=== PATIENT | female | born 1965 | race Caucasian/White ===

== ENCOUNTER 2022-08-19 12:16 | Emergency (ER) | payer OTHER, SELFPAY ==
[2022-08-19 13:01] VITALS: BP 135/96; PULSE 100; RESP 18; TEMP 36.3; O2SAT 100
--- NOTE | 2022-08-19 13:52 | ED.LOWEXIN ---
HPI - Extremity Injury (Lower) General Chief Complaint: Extremity Injury, Lower Stated Complaint: rt hip pain Time Seen by Provider: 08/19/22 13:52 Source: patient Mode of arrival: ambulatory Limitations: no limitations History of Present Illness HPI Narrative: 57 y/o female presented for c/o right anterior hip pain for over 3 weeks. Pain radiates to right leg mid thigh. Denies injury or overuse. Ambulates with steady gait. Denies numbness, tingling or weakness to RLE. Took 'pain pills' without relief. Had video call with PCP one week ago, but did not potato picker the prescribed prescription. States it is not getting better. Sitting with legs crossed. Related Data Home Medications Medication Instructions Recorded Confirmed dextroamphetamine-amphetamine 5 mg 5 mg PO DAILY 08/19/22 08/19/22 tablet (Adderall) Allergies Allergy/AdvReac Type Severity Reaction Status Date / Time No Known Allergies Allergy Verified 08/19/22 13:42 Review of Systems Review of Systems: CONSTITUTIONAL: Denies body aches, fever, chills CARDIOVASCULAR: Denies chest pain, palpitations, or edema. RESPIRATORY: Denies cough or dyspnea. GASTROINTESTINAL: Denies abdominal pain, nausea, vomiting, or diarrhea. SKIN: Denies rash, itching, or wounds. MUSCULOSKELETAL:Per HPI NEUROLOGIC: Denies headache, numbness, tingling, or weakness. All systems reviewed & are unremarkable except as noted in HPI and below PMFSH Comments At time of signature, I have reviewed and agree with nursing past medical, surgical, social and family history unless otherwise noted. Please see nursing chart for further information. There is no relevant family history pertinent to the presenting complaint Exam Narrative: GENERAL: Well-appearing, well-nourished, and in no acute distress. CHEST: Speaks in full sentences. No respiratory distress. HEART: Regular rate and rhythm. Normal and equal peripheral pulses. EXTREMITIES: RLE has normal strength and sensation, Tender over right hip flexor. Normal range of motion with flexion/extension/rotation at hip but endorses pain to hip flexor with movement. No edema or ecchymosis. No open wounds/lesions or obvious deformity; alignment normal, pulse palpable and equal bilaterally, skin warm, dry, pink. Capillary refill less than 3 seconds. SKIN: Warm, dry, no rash. NEURO: Alert and oriented x3. PSYCH: Normal mood and affect Course Course Emergency Course: Patient is aware of diagnosis, understands and agrees to treatment plan. Anticipatory guidance given. Patient agrees to follow-up as directed and is aware of reasons to seek care at the emergency department. Portions of this record may have been created with voice recognition software Level of Care: Express Care Visit Vital Signs Vital signs: Vital Signs Temperature 97.4 F L 08/19/22 13:01 Pulse Rate 100 08/19/22 13:01 Respiratory Rate 18 08/19/22 13:01 Blood Pressure 135/96 H 08/19/22 13:01 Pulse Oximetry 100 08/19/22 13:01 Oxygen Delivery Room Air 08/19/22 13:01 Temperature 97.4 F L 08/19/22 13:01 Pulse Rate 100 08/19/22 13:01 Respiratory Rate 18 08/19/22 13:01 Blood Pressure 135/96 H 08/19/22 13:01 Pulse Oximetry 100 08/19/22 13:01 Oxygen Delivery Room Air 08/19/22 13:01 Reviewed MDM - Extremity Injury (Lower) MDM Narrative Medical decision making narrative: Advised supportive measures and signs/symptoms to go to the ER. Pt is appropriate for outpt treatment and f/u. we discussed the possibility of imaging and physical therapy per PCP. Differential Diagnosis Differential diagnosis: Likely other (osteoarthritis, hip strain, bursitis) Discharge Plan Discharge Clinical Impression: Acute pain of right hip Patient Disposition: Home, Self-Care Condition: Stable Instructions: Hip Pain (ED) Additional Instructions: Rest. Avoid running or excessive walking or anything that worsens the symptoms Tylenol 1000mg every 8
== END 2022-08-19 14:00 | disposition home or self-care (01) ==
PROVIDERS: Emergency Provider Nurse Practitioner Family
DX: M25.551 Pain in right hip (principal); F90.9 Attention-deficit hyperactivity disorder, unspecified type
CPT/HCPCS: 99213; G0463

== ENCOUNTER 2023-03-11 09:09 | Emergency (ER) | payer OTHER, SELFPAY ==
[2023-03-11 09:35] VITALS: BP 130/92; PULSE 96; RESP 16; TEMP 36.6; O2SAT 100
--- NOTE | 2023-03-11 09:53 | ED.HA ---
HPI - Headache General Chief Complaint: Headache Stated Complaint: dizziness,blurred vision Time Seen by Provider: 03/11/23 09:53 Source: patient and RN notes reviewed Mode of arrival: ambulatory Limitations: no limitations History of Present Illness HPI Narrative: 57-year-old female with a history of hypertension presented for complaint of intermittent dizziness, vision changes an elevated blood pressure for about 1 week. Endorses yesterday she had intermittent brief episodes of left-sided chest pain, these episodes were associated with profuse sweating and nausea, pain radiated to the back. Endorses fatigue today. She also states she almost passed out while at work about 4 days ago. She states her vision changed and went dark, she held on to the counter and did not collapse. Denies room spinning. Patient endorses a chronic cough and chronic palpitations, worse when going up stairs. Denies cough, wheezing, vomiting, diarrhea, fever or chills. Patient is smoker half pack per day over 40 years, occasional alcohol, denies drug use. States she has not taken medication for hypertension in over 1 year after her , she just stopped taking the medication. Related Data Home Medications Medication Instructions Recorded Confirmed dextroamphetamine-amphetamine 5 mg 5 mg PO DAILY 08/19/22 08/19/22 tablet (Adderall) Allergies Allergy/AdvReac Type Severity Reaction Status Date / Time No Known Allergies Allergy Verified 08/19/22 13:42 Review of Systems Review of Systems: CONSTITUTIONAL: Denies body aches, fever, chills, or sweats. EYES: Reports visual changes, denies redness, or discharge. ENT: Denies rhinorrhea, congestion, sore throat, or otalgia. CARDIOVASCULAR: Reports chest pain, palpitations, Denies edema. RESPIRATORY: Reports chronic cough denies dyspnea. GASTROINTESTINAL: Reports nausea Denies abdominal pain, vomiting, or diarrhea. GENITOURINARY: Denies dysuria or hematuria. SKIN: Denies rash, itching, or wounds. MUSCULOSKELETAL: Denies back pain, joint pain, or myalgia. NEUROLOGIC: Endorses dizziness denies headache, numbness, tingling, or weakness All systems reviewed & are unremarkable except as noted in HPI and below PMFSH Past Medical History Medical History (Updated 03/11/23 @ 11:06 by Violeta Jacome APRN) HLD (hyperlipidemia) HTN (hypertension) Family History Family History (Updated 03/11/23 @ 11:06 by Violeta Jacome APRN) Other Diabetes mellitus Heart disease Social History Social History (Updated 03/11/23 @ 11:07 by Violeta Jacome APRN) Smoking packs per day: 0.5 Smoking cigarettes per day: 10.0 Years smoked: 40 Smoking pack-years: 20.00 Smoking status: Current every day smoker Tobacco type: cigarettes Alcohol use details: Occasional Comments At time of signature, I have reviewed and agree with nursing past medical, surgical, social and family history unless otherwise noted. Please see nursing chart for further information. There is no relevant family history pertinent to the presenting complaint Exam Narrative: GENERAL: Well-appearing EYES: PERRLA, EOMI. ENT: Mucous membranes pink and moist. No rhinorrhea. NECK: Normal AROM. Supple. No lymphadenopathy. CHEST: No respiratory distress. Clear to auscultation. HEART: Regular rate and rhythm. No murmur appreciated. Normal peripheral pulses. ABDOMEN: Soft, nontender, nondistended, normal active bowel sounds. EXTREMITIES: Normal range of motion. No edema. SKIN: Warm, dry, no rash. Capillary refill normal. Normal skin turgor. NEURO:No focal deficits. Alert and oriented x3. No facial droop/asymmetry noted bilaterally. Ambulatory exam with a normal based, steady gait. PSYCH: Normal affect. Course Course Emergency Course: Patient is aware of diagnosis, understands and agrees to treatment plan. Anticipatory guidance given. Portions of this record may have been created with anthony
--- NOTE | 2023-03-11 10:10 | ECG_ITS ---
Measurements Intervals [place] Rate: 82 P: 68 [place]: 146 QRS: 34 QRSD: 93 T: 70 QT: 386 QTc: 453 Interpretive Statements SINUS RHYTHM WITH SINUS ARRHYTHMIA INCOMPLETE RIGHT BUNDLE BRANCH BLOCK [90+ ms QRS DURATION, TERMINAL R IN V1/V2, 40+ ms S IN I/aVL/V4/V5/V6] NO PREVIOUS ECG AVAILABLE FOR COMPARISON Electronically Signed On 03-11-2023 17:07:17 CDT by Maribeth Leon M.D.
--- NOTE | 2023-03-11 10:31 | PC.NURSE ---
Pt signed AMA due to strongly suggested to go to ED for workup. Pt will go tomorrow when off work.
== END 2023-03-11 10:31 | disposition left against medical advice (07) ==
PROVIDERS: Emergency Provider Nurse Practitioner Family
DX: R55 Syncope and collapse (principal); F17.210 Nicotine dependence, cigarettes, uncomplicated; E78.5 Hyperlipidemia, unspecified; I10 Essential (primary) hypertension; Z91.148 Patient's other noncompliance with medication regimen for other reason
CPT/HCPCS: 93005; 99213; G0463

== ENCOUNTER 2023-03-12 17:29 | Emergency (ER) | payer OTHER, SELFPAY ==
--- NOTE | ~2023-03-12 | XR_ITS ---
EXAMINATION: XR chest 2V DATE: 03/12/2023 21:16 INDICATION: Shortness of breath. TECHNIQUE: Frontal and lateral views of the chest were obtained. COMPARISON: None. FINDINGS: There are lucencies and interstitial opacities in the lungs, consistent with emphysema. The re is mild scarring at the lung apices. No pleural effusion or pneumothorax. The heart size is normal . IMPRESSION: 1. Emphysema. 2. Mild scarring at the lung apices. Reviewed, dictated and finalized at location A.
--- NOTE | ~2023-03-12 | CT_ITS ---
EXAMINATION: CT brain wo con DATE: 03/12/2023 21:11 INDICATION: Dizziness. TECHNIQUE: Computed tomography (CT) of the head was performed without intravenous contrast. The mA wa s adjusted according to patient size. Iterative reconstruction technique was employed. The dose-lengt h product was 605.33 mGy-cm. COMPARISON: None FINDINGS: There is a prominent perivascular space in the left basal ganglia. There is no intracranial hemorrhage, acute infarction, or abnormal intracranial mass lesion. The ventricles are normal in siz e. The orbits are normal. The paranasal sinuses are clear. The mastoid air cells are normal. There is cerumen in left external auditory canal. IMPRESSION: 1. Normal brain. Reviewed, dictated and finalized at location A. IMPRESSION: 1. Normal brain.
--- NOTE | 2023-03-12 21:00 | ECG_ITS ---
Measurements Intervals [place] Rate: 91 P: 59 MD: 148 QRS: 29 QRSD: 78 T: 66 QT: 359 QTc: 443 Interpretive Statements SINUS RHYTHM LOW QRS VOLTAGE IN PRECORDIAL LEADS [QRS DEFLECTION < 1.0 mV IN CHEST LEADS] COMPARED TO ECG 03/11/2023 10:10:46 NO SIGNIFICANT CHANGES Electronically Signed On 03-13-2023 13:47:08 CDT by Maribeth Leon M.D.
--- NOTE | 2023-03-12 21:04 | ED.DIZZY ---
HPI - Dizziness General Chief Complaint: Dizziness Time Seen by Provider: 03/12/23 20:28 History of Present Illness HPI Narrative: Patient is a 57-year-old female here for evaluation of lightheadedness, dizziness, shortness of breath x1 week. Patient states symptoms are there all the time, nothing seems to make them worse or better. She denies history of previous similar symptoms. She had no vomiting but does feel occasionally nauseated. States that she has not been eating or drinking her usual amount. Also reports hot flashes. No chest pain, headaches, unilateral weakness. she went through menopause about 3 years ago, symptoms did not feel similar to this. Related Data Home Medications Medication Instructions Recorded Confirmed dextroamphetamine-amphetamine 5 mg 5 mg PO DAILY 08/19/22 08/19/22 tablet (Adderall) Allergies Allergy/AdvReac Type Severity Reaction Status Date / Time No Known Allergies Allergy Verified 08/19/22 13:42 Review of Systems Review of Systems: Gen.: Reports lightheadedness and dizziness Eyes: Denies eye pain or visual change ENT: Denies congestion Respiratory: Reports shortness of breath CV: Denies chest pain or palpitations GI: Denies abdominal pain nausea, emesis or diarrhea denies burning, urgency, frequency or hematuria Musculoskeletal: Denies back pain or muscle pain Neuro: Denies numbness, tingling, weakness or focal weakness Skin: Denies rash Except as documented, all other systems reviewed and negative PMFSH Past Medical History Medical History HLD (hyperlipidemia) HTN (hypertension) Family History Family History (Updated 03/11/23 @ 11:06 by Violeta Jacome APRN) Other Diabetes mellitus Heart disease Social History Social History (Updated 03/11/23 @ 11:07 by Violeta Jacome APRN) Smoking packs per day: 0.5 Smoking cigarettes per day: 10.0 Years smoked: 40 Smoking pack-years: 20.00 Smoking status: Current every day smoker Tobacco type: cigarettes Alcohol use details: Occasional Exam Narrative: APPEARANCE: Well appearing, no pain in distress, well-nourished. Head: Normocephalic and atraumatic. EYES: Horizontal fatigable nystagmus NOSE: No nasal drainage EARS: External ear normal in appearance THROAT: Oropharynx is clear. Mucous membranes are moist. NECK: Supple. No adenopathy, no masses. RESPIRATORY: Airway patent, respirations nonlabored. Clear to auscultation bilaterally, no rales, rhonchi, wheezing. CARDIOVASCULAR: Regular rate and rhythm without murmurs, rubs, or gallops. ABDOMINAL: Normoactive bowel sounds. Soft, nontender, nondistended. No rebound tenderness or guarding. MUSCULOSKELETAL: Extremities are warm and well-perfused. Moves all extremities well. No edema. NEURO: Normal speech. No focal neurologic deficits. SKIN: Skin is warm and dry. No rashes. PSYCHIATRIC: Normal affect/mood.. Course Vital Signs Vital signs: Vital Signs Pulse Rate 82 03/12/23 21:45 Respiratory Rate 18 03/12/23 21:45 Blood Pressure 152/90 H 03/12/23 21:45 Pulse Oximetry 97 03/12/23 21:45 Pulse Rate 82 03/12/23 21:45 Respiratory Rate 18 03/12/23 21:45 Blood Pressure 152/90 H 03/12/23 21:45 Pulse Oximetry 97 03/12/23 21:45 MDM - Dizziness MDM Narrative Medical decision making narrative: 57-year-old female here for evaluation of dizziness, shortness of breath, nonspecific symptoms for the past 7 days. She is nontoxic in appearance and has reassuring neurologic examination. basic labs unremarkable. D-dimer negative. She does have evidence of UTI with bacteria, white blood cells, leuks and red blood cells. CXR clear by preliminary read. While awaiting results of head CT and prior to obtaining EKG, patient informed nurse that she wants to leave to smoke a cigarette. offered nicotine patch versus medication for anxiety; patient states that she
[2023-03-12] MEDS: SODIUM CHLORIDE 0.9% IV 1,000 ML 999 ML IV CONT (21:19)
[2023-03-12 21:27] LABS: Basophils Absolute Auto 0.1 K/mm3 (0.0-0.1); Basophils Percent Auto 0.6 % (0.2-1.2); Eosinophils Absolute Auto 0.2 K/mm3 (0-0.3); Hematocrit 44.5 % (37.0-47.0); Hemoglobin 14.7 g/dL (12.0-15.0); Immature Granulocyte Absolute 0.03 K/mm3 (0.00-0.031); Immature Granulocyte Percent A 0.3 % (0-0.5); Lymphocytes Absolute Auto 4.38 K/mm3 (0.9-3.2); Lymphocytes Percent Auto 40.8 % (18.3-44.2); Mean Corpuscular Hemoglobin 29.6 pg (26-34); Mean Corpuscular Volume 89.5 fl (80-100); Mean Platelet Volume 10.2 fl (7.4-10.4); Monocytes Absolute Auto 0.8 K/mm3 (0.1-0.6); Monocytes Percent Auto 7.7 % (2.6-8.5); Neutrophils Absolute Auto 5.2 K/mm3 (1.3-6.7); Neutrophils Percent Auto 48.6 % (45.5-73.1); Platelet Count Result 304 k/mm3 (150-375); Red Blood Count 4.97 M/mm3 (4.2-5.4); Red Cell Distribution Width 13.9 % (11.5-14.5); White Blood Count 10.7 K/mm3 (4.5-10.0)
[2023-03-12 21:34] LABS: Appearance Urine Cloudy (Clear); Bacteria Urine 1+ /hpf; Bilirubin Urine Negative (Negative); Blood Urine 3+ (Negative); Color Urine Yellow (Yellow); Glucose Urine UA Negative (Negative); Ketones Urine Negative (Negative); Leukocyte Esterase Ur Trace LEU/UL (Negative); Nitrate Urine Negative (Negative); Non Pathogenic Casts 0-2; Protein Urine Negative (Negative); RBC Urine >100 /hpf (0-2); Squamous Epithelial Cell Urine Few /hpf (Few); Urobilinogen Urine 0.2 mg/dL (<2.0); pH Urine 6.5 (5.0-9.0)
[2023-03-12 21:37] LABS: Add Urine Microscopic? YES
[2023-03-12 21:38] LABS: Partial Thromboplastin Time 30.9 SECONDS (22.3-36.8); Prothrombin Time 13.1 Seconds (11.1-14.7)
[2023-03-12 21:45] VITALS: BP 152/90; PULSE 82; RESP 18; O2SAT 97
[2023-03-12 21:45] LABS: D Dimer 0.27 ug/mL (<0.48)
[2023-03-12 21:46] LABS: Barbiturate Screen Urine Negative (Negative); Benzodiazepines Screen Urine Negative (Negative)
[2023-03-12 21:48] LABS: Cannabinoid Screen Urine Negative (Negative); Cocaine Screen Urine Negative (Negative); Methadone Screen Urine Negative (Negative); Opiate Screen Urine Negative (Negative); Phencyclidine Screen Urine Negative (Negative)
[2023-03-12 22:17] LABS: Alanine Aminotransferase 21 U/L (6-35); Albumin Level 4.3 g/dL (3.5-5.1); Alkaline Phosphatase 95 U/L (38-126); Anion Gap 7 mmol/L (8-16); Aspartate Amino Transferase 31 U/L (14-36); Bilirubin,Total 0.5 mg/dL (0.2-1.3); Blood Urea Nitrogen 18 mg/dL (7-17); Calcium 8.9 mg/dL (8.4-10.2); Carbon Dioxide 29 mmol/L (22-30); Chloride 107 mmol/L (98-107); Estimated Glomerular Filt Rate > 60; Glucose 103 mg/dL (65-110); Lipase 72 U/L (23-300); Sodium 143 mmol/L (137-145)
[2023-03-12 22:18] LABS: Ethanol < 10 mg/dL (<10)
[2023-03-12 22:21] LABS: Amphetamine Screen Urine Positive (Negative)
[2023-03-12 22:27] LABS: Troponin I < 0.012 ng/mL (0.000-0.034)
--- NOTE | 2023-03-12 22:45 | PC.NURSE ---
Pt requesting to go outside and smoke and made aware that she is not able to leave with the IV in. ROOPA Coffman, made aware and stated she will go speak with pt.
== END 2023-03-12 23:15 | disposition left against medical advice (07) ==
PROVIDERS: Emergency Provider Physician Assistant
DX: N39.0 Urinary tract infection, site not specified (principal); F17.210 Nicotine dependence, cigarettes, uncomplicated; Z79.899 Other long term (current) drug therapy
CPT/HCPCS: 36415; 70450; 71046; 80053; 80307; 81001; 83690; 84484; 85025; 85380; 85610; 85730; 87086; 93005; 96360; 99284; J7030

== ENCOUNTER 2023-07-09 22:20 | Emergency (ER) | payer OTHER, MEDICAID, SELFPAY ==
--- NOTE | ~2023-07-09 | CT_ITS ---
Clinical Indication: Dyspnea, elevated d-dimer CT Scan of the Chest, Abdomen, and Pelvis with Contrast: Technique: Contiguous sections were acquired throughout the chest, abdomen, and pelvis after intraven ous administration of 100 cc of Omnipaque 350. Dose reduction technique was used on this scan by uti lizing automated exposure control and iterative reconstruction technique. The dose-length product (DL P) was 459.86 mGy-cm. Findings: There is no evidence of any significant mediastinal, hilar or axillary lymphadenopathy. The mediastin al soft tissues appear normal. No pulmonary embolus. No aortic aneurysm or dissection. There is no evidence of pleural or pericardial effusion. There is biapical scarring with advanced emphysema. There is a 7 mm irregular nodule at the periphera l right upper lobe (axial image 71). Focal irregular airspace opacity in the superior segment right l ower lobe (axial image 78). Left lung is clear. The liver, spleen, pancreas, gallbladder, adrenals and left kidney are within normal limits. Nonobstr ucting right renal stones measuring up to 8 mm. There are areas of cortical scarring of the right kid jasmin. There are atherosclerotic calcifications of the aorta. No lymphadenopathy. No bowel obstruction or bowel wall thickening. There is no evidence to suggest acute appendicitis. Urinary bladder is unremarkable. No adnexal mass seen. No ascites. Impression: No pulmonary embolus. Advanced emphysema. 2 focal irregular airspace opacities or nodules in the right lung, as detailed above. Diagnostic cons iderations include pulmonary nodules, focal pneumonitis, or focal scarring/atelectatic change. Recomm end follow-up CT scan in 6 months to reassess. Nonobstructing right nephrolithiasis. Reviewed, dictated and finalized at [facility]. Impression: No pulmonary embolus. Advanced emphysema. 2 focal irregular airspace opacities or nodules in the right lung, as detailed above. Diagnostic considerations include pulmonary nodules, focal pneumonitis, or focal scarring/atelectatic change. Recommend follow-up CT scan in 6 months t o reassess. Nonobstructing right nephrolithiasis.
--- NOTE | ~2023-07-09 | XR_ITS ---
EXAMINATION: XR chest 1V portable INDICATION: Shortness of breath and fluid retention TECHNIQUE: Portable AP chest at 2305 hours COMPARISON: 03/12/2023 FINDINGS: The lungs are free of acute opacities. No pleural effusion or pneumothorax. The cardiomedia stinal silhouette is normal. IMPRESSION: 1. No acute cardiopulmonary abnormality. Reviewed, dictated and finalized at location F.
[2023-07-09 22:21] VITALS: BP 141/84; PULSE 114; RESP 18; TEMP 36.4; O2SAT 97
--- NOTE | 2023-07-09 22:24 | ECG_ITS ---
Measurements Intervals [place] Rate: 103 P: 68 [place]: 136 QRS: 42 QRSD: 94 T: 70 QT: 350 QTc: 458 Interpretive Statements SINUS TACHYCARDIA MINIMAL ST DEPRESSION [0.025+ mV ST DEPRESSION] ABNORMAL ECG COMPARED TO ECG 03/12/2023 18:12:01 SINUS T[address]YCARDIA NOW PRESENT ST (T WAVE) DEVIATION NOW PRESENT Electronically Signed On 07-10-2023 9:01:09 CDT by Jonas Hernandez M.D.
--- NOTE | 2023-07-09 22:56 | PC.NURSE ---
Patient states she is running out to the car real quick . Patient informed she could be called any moment to go back to a room. patient states I will be right back . Patient ambulated with steady gate and in no distress.
[2023-07-09 23:14] VITALS: BP 132/74; PULSE 96; PULSE 98; RESP 18; O2SAT 99
[2023-07-09 23:29] LABS: Basophils Percent Auto 0.5 % (0.2-1.2); Eosinophils Absolute Auto 0.2 K/mm3 (0-0.3); Eosinophils Percent Auto 1.8 % (0-4.4); Hematocrit 45.1 % (37.0-47.0); Hemoglobin 14.7 g/dL (12.0-15.0); Immature Granulocyte Absolute 0.03 K/mm3 (0.00-0.031); Immature Granulocyte Percent A 0.4 % (0-0.5); Immature Platelet Fraction Pct 5.6 % (0.9-11.2); Lymphocytes Absolute Auto 2.71 K/mm3 (0.9-3.2); Lymphocytes Percent Auto 32.3 % (18.3-44.2); Mean Corpuscular HGB Conc 32.6 g/dl (32-36); Mean Corpuscular Hemoglobin 29.1 pg (26-34); Mean Corpuscular Volume 89.3 fl (80-100); Mean Platelet Volume 10.1 fl (7.4-10.4); Monocytes Absolute Auto 0.8 K/mm3 (0.1-0.6); Monocytes Percent Auto 9.2 % (2.6-8.5); Neutrophils Absolute Auto 4.7 K/mm3 (1.3-6.7); Neutrophils Percent Auto 55.8 % (45.5-73.1); Platelet Count Result 291 k/mm3 (150-375); Red Blood Count 5.05 M/mm3 (4.2-5.4); Red Cell Distribution Width 13.8 % (11.5-14.5); White Blood Count 8.4 K/mm3 (4.5-10.0)
[2023-07-09 23:38] LABS: Alanine Aminotransferase 21 U/L (6-35); Albumin Level 4.1 g/dL (3.5-5.1); Alkaline Phosphatase 104 U/L (38-126); Anion Gap 6 mmol/L (8-16); Aspartate Amino Transferase 30 U/L (14-36); Bilirubin,Total 0.5 mg/dL (0.2-1.3); Blood Urea Nitrogen 15 mg/dL (7-17); Calcium 9.2 mg/dL (8.4-10.2); Carbon Dioxide 30 mmol/L (22-30); Chloride 106 mmol/L (98-107); Estimated CRCL calculation 72 ml/min; Estimated Glomerular Filt Rate > 60; Glucose 112 mg/dL (65-110); Potassium 3.5 mmol/L (3.4-5.0); Sodium 142 mmol/L (137-145)
[2023-07-09 23:46] LABS: NT Pro B Type Natriuretic Pept 166 pg/mL (19.9-100)
[2023-07-09 23:50] LABS: Troponin I < 0.012 ng/mL (0.000-0.034)
[2023-07-10 00:22] LABS: Prothrombin Time 13.5 Seconds (11.1-14.7)
[2023-07-10 00:23] LABS: Partial Thromboplastin Time 32.1 SECONDS (22.3-36.8)
[2023-07-10 00:28] VITALS: BP 124/83; PULSE 96; RESP 18; O2SAT 100
[2023-07-10 00:42] LABS: Appearance Urine Clear (Clear); Bacteria Urine None Seen /hpf; Bilirubin Urine Negative (Negative); Blood Urine 2+ (Negative); Color Urine Yellow (Yellow); Glucose Urine UA Negative (Negative); Ketones Urine Negative (Negative); Leukocyte Esterase Ur Trace LEU/UL (Negative); Nitrate Urine Negative (Negative); Non Pathogenic Casts 0-2; Protein Urine Negative (Negative); RBC Urine 51-100 /hpf (0-2); Specific Grav Ur 1.022 (1.001-1.035); Squamous Epithelial Cell Urine Occasional /hpf (Few); pH Urine 5.5 (5.0-9.0)
[2023-07-10 00:51] LABS: Add Urine Microscopic? YES
[2023-07-10] MEDS: NICOTINE (*PBKC) 21 MG PATCH 1 PATCH TRANSDERM (03:27)
--- NOTE | 2023-07-10 03:47 | ED.GENADULT ---
HPI - General Adult General Chief complaint: Shortness of Breath/Dyspnea Stated complaint: edema to legs, shortness of breath Time Seen by Provider: 07/09/23 23:05 History of Present Illness HPI narrative: Patient 58-year-old female who presents emergency department with chief complaint of left leg swelling and shortness of breath. The patient states that for several days she has been having increasing shortness of breath worse with exertion the patient reports that she is also had some swelling in her left lower extremity that has been slowly getting worse. The patient states that feels as though her leg is tight worse in the calf the patient reports no long trips reports no immobilization denies trauma denies recent surgery. Related Data Home Medications Medication Instructions Recorded Confirmed dextroamphetamine-amphetamine 5 mg 5 mg PO DAILY 08/19/22 08/19/22 tablet (Adderall) Allergies Allergy/AdvReac Type Severity Reaction Status Date / Time No Known Allergies Allergy Verified 07/09/23 23:26 Review of Systems Review of Systems: A 10 system review of systems was completed on the patient and is negative except for what is stated in the HPI. Nursing and ancillary documentation was reviewed. [facility] Past Medical History Medical History HLD (hyperlipidemia) HTN (hypertension) Family History Family History Other Diabetes mellitus Heart disease Social History Social History Smoking packs per day: 0.5 Smoking cigarettes per day: 10.0 Years smoked: 40 Smoking pack-years: 20.00 Smoking status: Current every day smoker Tobacco type: cigarettes Alcohol use details: Occasional Exam Narrative: GENERAL: Well-appearing, well-nourished, and in no acute distress. HEAD: Normocephalic, atraumatic. EYES: PERRLA and EOMI. ENT: Nares clear, no rhinorrhea or epistaxis. Mucous membranes moist. NECK: Supple. CHEST: Clear to auscultation. No respiratory distress. HEART: Regular rate and rhythm. No murmur heard. Normal peripheral pulses. ABDOMEN: Soft, nontender, nondistended, normal active bowel sounds. EXTREMITIES: Normal range of motion. Trace edema of the left lower extremity. SKIN: Warm, dry, no rash. NEURO: No focal deficits. Alert and oriented x3. PSYCH: Normal mood and affect. Course Vital Signs Vital signs: Vital Signs Temperature 36.4 C 07/09/23 22:21 Pulse Rate 114 H 07/09/23 22:21 Respiratory Rate 18 07/09/23 22:21 Blood Pressure 141/84 H 07/09/23 22:21 Pulse Oximetry 97 07/09/23 22:21 Oxygen Delivery Room Air 07/09/23 22:21 Temperature 36.4 C 07/09/23 22:21 Pulse Rate 96 07/10/23 00:28 Respiratory Rate 18 07/10/23 00:28 Blood Pressure 124/83 07/10/23 00:28 Pulse Oximetry 100 07/10/23 00:28 Oxygen Delivery Room Air 07/09/23 23:14 Medical Decision Making MDM Narrative Medical decision making narrative: Differential diagnosis includes DVT, PE, CHF, ACS, pneumonia Laboratory studies were obtained which showed a normal CBC D-dimer was slightly elevated to 0.50 electrolytes are within normal limits BNP was 166 troponin was less than 0.012 urinalysis showed trace leuks 6-10 white blood cells in the urine. Chest x-ray showed no focal infiltrate CTA chest with abdomen pelvis CT showed no acute abnormalities The patient will be set up for an ultrasound in the morning Vital Signs Vital Signs: Vital Signs Temperature 36.4 C 07/09/23 22:21 Pulse Rate 114 H 07/09/23 22:21 Respiratory Rate 18 07/09/23 22:21 Blood Pressure 141/84 H 07/09/23 22:21 Pulse Oximetry 97 07/09/23 22:21 Oxygen Delivery Room Air 07/09/23 22:21 Temperature 36.4 C 07/09/23 22:21 Pulse Rate 96 07/10/23 00:28 Respiratory Rate 18 07/10
[2023-07-10] MEDS: CEPHALEXIN 500 MG CAPSULE PO (04:03)
[2023-07-10] MEDS: ENOXAPARIN 60 MG/0.6 ML SYRINGE SUB-Q (04:04)
[2023-07-10 04:08] VITALS: BP 128/88; PULSE 84; RESP 15; O2SAT 98
== END 2023-07-10 04:08 | disposition home or self-care (01) ==
PROVIDERS: Emergency Provider Emergency Medicine
DX: R06.00 Dyspnea, unspecified (principal); N39.0 Urinary tract infection, site not specified; R22.42 Localized swelling, mass and lump, left lower limb; E78.5 Hyperlipidemia, unspecified; I10 Essential (primary) hypertension; F17.210 Nicotine dependence, cigarettes, uncomplicated
CPT/HCPCS: 36415; 71045; 71275; 74177; 80053; 81001; 83880; 84484; 85025; 85055; 85380; 85610; 85730; 87086; 87088; 93005; 93971; 96372; 99284; A9270; J1650; Q9967

== ENCOUNTER 2023-07-10 07:12 | Outpatient (CLI) | payer OTHER, MEDICAID, SELFPAY ==
--- NOTE | ~2023-07-10 | US_ITS ---
Duplex Sonography of the left extremity: Indication: Swelling Findings: Sagittal and transverse B-mode images as well as color-flow imaging were performed on the l eft femoral and popliteal veins. B-mode examination was done without and with compression in the tra nsverse plane. There is good visualization of the common femoral, proximal profunda femoral, superfi cial femoral, greater saphenous, and popliteal veins. Normal flow was seen on color-flow imaging. No rmal compressibility was demonstrated. Visualized calf veins are also patent. Impression: No evidence of deep vein thrombosis involving the left lower extremity. Reviewed, dictated and finalized at location M. Impression: No evidence of deep vein thrombosis involving the left lower extremity.
== END 2023-07-10 07:13 | disposition home or self-care (01) ==
DX: M79.89 Other specified soft tissue disorders (principal)
CPT/HCPCS: 93971

== ENCOUNTER 2023-11-10 12:38 | Emergency (ER) | payer MEDICAID, SELFPAY ==
--- NOTE | 2023-11-10 13:24 | ED.GENADULT ---
HPI - General Adult General Chief complaint: Shortness of Breath/Dyspnea Stated complaint: sob/lt arm pain Time Seen by Provider: 11/10/23 13:24 Source: patient, RN notes reviewed and old records reviewed Mode of arrival: ambulatory Limitations: no limitations History of Present Illness HPI narrative: 58-year-old female presents to the [facility] with 2 concerns #1 C/O shortness of breath, left upper scapular pain radiating down left arm associated with a headache and blurry vision. Patient denies any injury. Movement does not make it better or worse. Starts 2 days ago and has gradually gotten worse. Patient denies any chest pain. Unable to reproduce pain with movement #2 concerns for a lesion to her left chest, breast area, concern for cancer. Had seen primary care provider 2 weeks ago who suggested she see Dermatology. Patient reports that it is extremely painful and has increased in size in the last 2 weeks. Patient is a smoker History of ADHD. Denies any cardiac history, denies any lung history. Reports a history of skin cancer which she was supposed to receive radiation for but did not Treatments prior to arrival: none Related Data Home Medications Medication Instructions Recorded Confirmed dextroamphetamine-amphetamine 5 mg 5 mg PO DAILY 08/19/22 11/10/23 tablet (Adderall) Allergies Allergy/AdvReac Type Severity Reaction Status Date / Time No Known Allergies Allergy Verified 11/10/23 14:02 Review of Systems Review of Systems: All systems reviewed & are unremarkable except as noted in HPI and below Constitutional: Constitutional: Reports no additional constitutional complaints Eyes: Eyes: Reports no additional eye complaints ENT: Reports system reviewed and no additional complaints, except as documented Cardiovascular: Cardiovascular: Reports as per HPI, Denies chest pain, Reports dyspnea and Reports other (Scapular pain radiating down left arm) Respiratory: Respiratory: Reports as per HPI, Denies chest congestion, Denies cough, Reports dyspnea and Denies wheezing Gastrointestinal: Gastrointestinal: Reports no additional gastrointestinal complaints, Denies abdominal pain, Denies nausea and Denies vomiting Musculoskeletal: Musculoskeletal: Reports no additional musculoskeletal complaints Integumentary/Breasts: Skin/Breast: Reports system reviewed and no additional complaints, except as docu Neurologic: Reports as per HPI, Denies dizziness, Reports headache(s) and Reports Other visual disturbances (Blurry vision) Psychiatric: Psychiatric: Reports no additional psychiatric complaints Allergic/Immunologic: Allergic/Immunologic: Reports no additional allergic/immunologic complaints PMFSH Past Medical History Medical History ADHD HLD (hyperlipidemia) HTN (hypertension) Skin cancer Family History Family History Other Diabetes mellitus Heart disease Social History Social History Smoking packs per day: 0.5 Smoking cigarettes per day: 10.0 Years smoked: 40 Smoking pack-years: 20.00 Smoking status: Current every day smoker Tobacco type: cigarettes Alcohol use details: Occasional Comments At the time of my signature, I reviewed and agree with the nursing past medical, surgical, social, and family history. There is no relevant family history pertinent to the patient complaint. Exam Const: General: cooperative, healthy appearing, comfortable, no acute distress, well developed, alert and well nourished Nutritional Appearance: well nourished Orientation/consciousness: patient oriented x3 Limitations: no limitations HENMT: Head: normal to inspection Ears: hearing grossly normal bilaterally and external ears normal Face/Nose/Sinus: Normal external nose present, Normal nares present, Normal nasal mucous memb
[2023-11-10 13:40] VITALS: BP 121/80; PULSE 112; RESP 20; TEMP 36.8; O2SAT 96
--- NOTE | 2023-11-10 14:26 | ECG_ITS ---
Measurements Intervals [place] Rate: 88 P: 71 ND: 146 QRS: 14 QRSD: 88 T: 61 QT: 360 QTc: 437 Interpretive Statements REDUCED ECG QUALITY BECAUSE OF BASELINE ARTIFACT SINUS RHYTHM GROSSLY NORMAL ECG COMPARED TO ECG 07/09/2023 22:28:18 SINUS RHYTHM NOW PRESENT Electronically Signed On 11-10-2023 15:15:36 MAINT MECH[employer]IC by Christofer Burgos M.D.
== END 2023-11-10 13:45 | disposition left against medical advice (07) ==
PROVIDERS: Emergency Provider Nurse Practitioner
DX: R06.02 Shortness of breath (principal); L98.9 Disorder of the skin and subcutaneous tissue, unspecified; R51.9 Headache, unspecified; H53.8 Other visual disturbances; F17.210 Nicotine dependence, cigarettes, uncomplicated; E78.5 Hyperlipidemia, unspecified; I10 Essential (primary) hypertension; F90.9 Attention-deficit hyperactivity disorder, unspecified type; Z85.828 Personal history of other malignant neoplasm of skin
CPT/HCPCS: 93005; 99213; G0463

== ENCOUNTER 2024-12-19 21:46 | Emergency (ER) | payer OTHER, SELFPAY ==
[2024-12-19 21:48] VITALS: BP 145/98; PULSE 112; RESP 19; TEMP 36.4; O2SAT 98
--- OUTSIDE RECORDS SUMMARY | 2024-12-19 21:49 | XMS_ITS | Encounter Summary ---
Author Organization [facility] Health Address [address] [place] [address] Care Team Providers Care Cd Technician Name Role Phone Josemanuel Kim MD [facility] Care [facility] Encounter Details Date Type Department Care Team (Late st Contact Info) Description 08/01/2020 Lab Requisition [facility] DermPath Lab [address] [place] [phone] Earle Healy MD [address] [facility] [place] [address] Social History Tobacco Use Types Packs/Day Years Used Date Smoking Tobacco: Unknown Smokeless Tobacco: Never Sex and Gender Information Value Date Recorded Sex Assigned at Not on file Gender Identity Not on file Sexual Orientation Not on file documented as of this encounter Plan of Treatment Not on file documented as of this encounter Procedures Procedure Name Priority Date/Time Associated Diagnosis Comments DERMATOPATHOLOGY Routine 07/28/2020 12:0 0 AM CDT documented in this encounter Results * DERMATOPATHOLOGY (07/28/2020 12:00 AM CDT) Case Report Dermatopathology Report Case: [id number] Authorizing Provider: Earle Healy MD Collected: 07/28/2020 12:00 AM Ordering Location: [facility] DermPath Lab Received: 08/01/2020 05:57 AM Pathologist: Christine Harris MD Specimens: A) - Skin, right anterior hairline B) - Skin, right jawline C) - Skin, right side 0 4:14 PM [facility]ERMAT[facility]OLOGY [facility]ORAT[facility] Final Diagnosis Specimen A. SKIN, right anterior hairline: SQUAMOUS CELL CARCINOMA, WELL DIFFERENTIATED (C44.329) (see microscopic description) Specimen B. SKIN, right jawline: HYPERPLASTIC (HYPERTROPHIC) ACTINIC KERATOSIS (L57.0) Specimen C. SKIN, right side: COMPOUND MELANOCYTIC PROLIFERATION, INFLAMED; PRESENT AT MARGIN (D48.5) (see microscopic description and comment) 0 4:14 PM [facility]MAT[facility] Clinical History A: SK vs SCC. Path # [id number]. B: SK vs SCC. Path # [id number]. C: Nevus vs MM. Path # [id number]. 0 4:14 PM [facility] Gross Description Specimen A: Received is one formalin filled container labeled with the patient's name and designated right anterior hairline. The specimen consists of a shave biopsy (3 pieces) measuring 80w13t3ng, bisected, 1i3b0fd, & 5w4l9mr. Jar 0+. Specimen B: Received is one formalin filled container labeled with the patient's name and designated right jawline. The specimen consists of a shave biopsy measuring 0w9d1xy. Jar 0. Specimen C: Received is one formalin filled container labeled with the patient's name and designated right side. The specimen consists of a shave biopsy measuring 3f6m4by. Jar 0. 0 4:14 PM [facility] Microscopic Description Specimen A. SKIN, right anterior hairline: Arising in the epidermis and extending into the dermis there are irregularly shaped aggregates of keratinocytes showing evidence of premature cornification. Additional deeper sections were obtained and reviewed. Specimen B. SKIN, right jawline: There is hyperkeratosis alternating with parakeratosis. There is epidermal hyperplasia with disorderly maturation of keratinocytes with nuclear pleomorphism confined to the lower half of the epidermis. Specimen C. SKIN, right side: Sections show a compound melanocytic proliferation. There is a lentiginous proliferation of melanocytes between irregular nests. Scattered melanocytes show evidence of upward migration within the epidermis. In the dermis there are focal single melanocytes highlighted on MART-1/Melan-A stain. There is dermal lichenoid predominantly lymphocytic infiltrate. This lesion is present at the margin of the specimen. COMMENT: Because this lesion is present at the margin of the specimen, symmetry and circumscription cannot be evaluated. Therefore, a complete but conservative re-excision is recommended to evaluate this lesion in its entirety. This case was also reviewed by Dr. Pretty Carballo, who agrees. 0 4:14 PM [facility] DERMATOPATHOLOGY [facility] Disclaimer An external and internal positive and negative controls are appropriate for the histochemical, immunohistochemical and immunofluorescence stain(s) in this case (if any), except where stated explicitly. The performance characteristics of the stain(s) cited in this report were developed and its performance characteristic determined by the Dermatopathology Laboratory at [facility], directed by Dr. Lorrie Dalton. These tests need not be, and therefore are not, approved by the [place] Food and Drug Administration. The tests are used for clinical purposes. Billing Codes Specimen Charges Stain Charges 05816 24062 87841 1 1 1 93226 1 0 4:14 PM [facility] Embedded Images 0 4:14 PM [facility] Pathology/Cytology TISSUE SPECIMEN FROM SKIN / Unknown 07/28/2020 08/01/2020 5:57 AM [facility] Miscellaneous samples (specimen) TISSUE SPECIMEN FROM SKIN / Unknown 07/28/2020 08/01/2020 5:57 AM [facility] Miscellaneous samples (specimen) TISSUE SPECIMEN FROM SKIN / Unknown 07/28/2020 08/01/2020 5:57 AM [facility] Earle Healy MD LAB - PATHOLOGY/CYTO LOGY ORDERABLES DERMATOPATHOLOGY LABORATORY [facility] - Department of Dermatology [facility] Special[facility] Medicine [address] [place] [address], [address] [phone] documented in this encounter Visit Diagnoses Not on filedocumented in this encounter Care Teams Cd Technician Relationship Specialty Start Date End Date Josemanuel Kim MD [address] [place] [address] PCP - General Family Medicine 11/19/23 documented as of this encounter
--- OUTSIDE RECORDS SUMMARY | 2024-12-19 21:49 | XMS_ITS | Encounter Summary ---
Author Organization [facility] Health Address [address] [place] [address] Care Team Providers Care Rug Underlay Machine Operator Name Role Phone Josemanuel Kim MD Primary Care [facility] Encounter Details Date Type Department Care Team (Late st Contact Info) Description 09/01/2020 Lab Requisition [facility] DermPath Lab [address] [place] [phone] Earle Healy MD [address] [facility] [place] [address] Social History Tobacco Use Types Packs/Day Years [...] Priority Date/Time Associated Diagnosis Comments DERMATOPATHOLOGY Routine 08/31/2020 12:0 0 AM COMMUN[facility]S TOWER CLIMBER documented in this encounter Results * DERMATOPATHOLOGY (08/31/2020 12:00 AM COMMUNICATIONS TOWER CLIMBER) Case Report Dermatopathology Report Case: [id number] Authorizing Provider: Earel Healy MD Collected: 08/31/2020 12:00 AM Ordering Location: [facility] DermPath Lab Received: 09/01/2020 06:38 AM Pathologist: Pretty Carballo MD Specimen: Skin, right side 0 1:29 PM [facility] DERMATOPATHOLOGY LABORATORY Final Diagnosis Specimen A. SKIN, right side: DERMAL SCAR RESIDUAL MELANOCYTIC PROLIFERATION NOT IDENTIFIED (L90.5) 0 1:29 PM [facility] DERMATOPATHOLOGY LABORATORY Clinical History Nevus vs MM. Path # [id number]. Check margins. 0 1:29 PM [facility] DERMATOPATHOLOGY LABORATORY Gross Description Specimen A: Received is one formalin filled container labeled with the patient's name and designated right side. The specimen consists of a non-oriented ellipse of skin measuring 32r0y6ek. The epidermal surface consists of a centrally located 5x5mm previous biopsy site. The margin is inked green. The specimen is bisected and submitted in 1 cassette. Jar 0. 0 1:29 PM [facility] DERMATOPATHOLOGY LABORATORY Microscopic Description Specimen A. SKIN, right side: There are fibroblasts and collagen bundles oriented parallel to the skin surface. There are elongated blood vessels, some of which are oriented perpendicular to the skin surface. No residual melanocytic proliferation is identified. 0 1:29 PM [facility] DERMATOPATHOLOGY LABORATORY Disclaimer An external and internal positive and negative controls are appropriate for the histochemical, immunohistochemical and immunofluorescence stain(s) in this case (if any), except where stated explicitly. The performance characteristics of the stain(s) cited in this report were developed and its performance characteristic determined by the Dermatopathology Laboratory at [facility], directed by Dr. Lorrie Dalton. These tests need not be, and therefore are not, approved by the [place] Food and Drug Administration. The tests are used for clinical purposes. Billing Codes Specimen Charges Stain Charges 68810 1 0 1:29 PM [facility] DERMATOPATHOLOGY LABORATORY Embedded Images 0 1:29 PM [facility] DERMATOPATHOLOGY LABORATORY Pathology/Cytolog y TISSUE SPECIMEN FROM SKIN / Unknown 08/31/2020 09/01/2020 6:38 AM COMMUNICATIONS TOWER CLIMBER Earle Healy MD LAB - PATHOLOGY/CYTO LOGY ORDERABLES DERMATOPATHOLOGY LABORATORY [facility] - Department of Dermatology [address], [address] [phone] documented in this encounter Visit Diagnoses Not on filedocumented in this encounter Care Teams Rug Underlay Machine Operator Relationship Specialty Start Date End Date Josemanuel Kim MD [address] [place] [address] PCP - General Family Medicine 11/19/23 documented as of this encounter
--- OUTSIDE RECORDS SUMMARY | 2024-12-19 21:49 | XMS_ITS | Clinical Summary ---
Author Organization [facility] Address [address] [place] [address] Care Team Providers Care Online Communications Manager Name Role Phone Josemanuel Kim MD Primary Care [facility] Source Comments [facility],non-owned Affiliates and Associated Physician Practices is amultiple site organization consisting of ambulatory clinics and hospital sitesin [place], [place], [place] and [place]. This disclosure is being madepursuant to the Care Everywhere program and may not contain all information available regarding this patient. Last updated 18.[facility] Allergies No known active allergies Medications * Be aware that medications may not be up to date on this document. Alwaysverify current medications with the patient. Medication Sig Dispensed Refills Start Date End Date Status valsartan-hydroCHLOR Othiazide (Diovan HCT) 80-12.5 MG tablet Take 1 (one) tablet by mouth once daily Active rosuvastatin (Crestor) 10 MG tablet Take 1 (one) tablet by mouth once daily 06/19/2022 Active rOPINIRole (Requip) 0.5 MG tablet Take 1 (one) tablet by mouth at bedtime 08/05/2022 Active ARIPiprazole (Abilify) 5 MG tablet Take 1 (one) tablet by mouth once daily 04/28/2023 Active triamcinolone acetonide (Kenalog) 0.1 % creamIndications:Jovanni h and other nonspecific skin eruption Apply to back twice daily as needed for itch. 30 days supply. 60 g 11/19/2023 Active minoxidil (Loniten) 2.5 MG tabletIndications:Ot her specified nonscarring hair loss take 1/4 pill once daily. 32 d supply. 8 tablet 2 11/19/2023 Active traMADol (Ultram) 50 MG tabletIndications:sk in cancer Take 1 (one) tablet by mouth every 6 hours as needed for Pain Maximum allowable Tramadol amount = 300 mg / 24 hours. Reasons: skin cancer 12 tablet 11/27/2023 Active Social History Tobacco Use Types Packs/Day Years Used Date Smoking Tobacco: Every Day Cigarettes Smokeless Tobacco: Never Tobacco Cessation:Ready to Q uit: Not Asked; Counseling Given: Not Answered Sex and Gender Information Value Date Recorded Sex Assigned at Not on file Gender Identity Not on file Sexual Orientation Not on file Last Filed Vital Signs Vital Sign Reading Time Taken Comments Blood Pressure 119/86 06/17/2017 12:04 PM CDT Pulse 88 06/17/2017 12:04 PM CDT Temperature 36.7 C (98 F) 06/17/2017 12:04 PM CDT Respiratory Rate 16 06/17/2017 12:04 PM CDT Oxygen Saturation 98% 06/17/2017 12:04 PM CDT Inhaled Oxygen Concentration - - Weight 60.3 kg (133 lb) 06/17/2017 12:04 PM CDT Height 160 cm (5' 3 ) 06/17/2017 12:04 PM CDT Body Mass Index 23.56 06/17/2017 12:04 PM CDT Plan of Treatment Health Maintenance Due Date Last Done Comments COLOGUARD (AGES 45-75) - COL ON CA SCREENING [address] COLONOGRAPHY - COLON CA SCREENING 1965 FIT - COLON CA SCREENING 1965 FLEX SIG - COLON CA SCREENING 1965 PAP SMEAR 1965 HIV SCREENING 1980 HEPATITIS C SCREENING 04/02/1983 DTAP/TDAP/TD VACCINES (1 - Tdap) 1984 HEPATITIS B VACCINE (1 of 3 - 19+ 3-dose series) 1984 PNEUMOCOCCAL VACCINE 50+ (1 of 2 - PCV) 1984 PNEUMOCOCCAL VACCINE (1 of 2 - PCV) 1984 ZOSTER VACCINE (1 of 2) 2015 MAMMOGRAM 08/31/2016 08/31/2014 COVID-19 VACCINE ( - 2023-2 5 season) 2024 INFLUENZA VACCINE (#1) 2024 COLONOSCOPY - COLON CA SCREENING 09/29/2024 09/29/19 15 Colorectal Cancer Screening 09/29/2024 DEPRESSION SCREENING 09/29/2024 HIB VACCINE Aged Out No longer eligi ble based on patient's age to complete this topic HPV VACCINE Aged Out No longer eligi ble based on patient's age to complete this topic MENINGOCOCCAL (Group B) VACC INE SHARED DECISION-MAKING Aged Out No longer eligibl e based on patient's age to complete this topic MENINGOCOCCAL GROUPS A/C/Y/W VACCINE Aged Out No longer eligible b ased on patient's age to complete this topic Care Teams Online Communications Manager Relationship Specialty Start Date End Date Josemanuel Kim MD [address] [address] PCP - General Family Medicine 11/19/23
--- OUTSIDE RECORDS SUMMARY | 2024-12-19 21:49 | XMS_ITS | Clinical Summary ---
Author Organization [facility] Virtual Care Address [address] [place] [phone] Phone Care Team Providers Care Heel Caser Name Role Phone Josemanuel Kim MD Primary Care Provi hiwot Allergies No known active allergies Medications biotin 2,500 mcg capsule Take by mouth OTC gummie for hair, skin and nails Active rosuvastatin (CRESTOR) 10 mg tablet Take 1 tablet (10 mg total) by mouth daily 90 tablet 1 09/21/2024 Active dextroamphetami ne-amphetamine XR (ADDERALL XR) 15 mg 24 hr capsule Take 1 capsule (15 mg total) by mouth every morning 30 capsule 10/20/2024 Active Active Problems Problem Noted Date Diagnosed Date History of tobacco use 07/16/2023 Solitary pulmonary nodule 07/16/2023 Reflux esophagitis 07/16/2023 Irritable bowel syndrome 07/16/2023 Epigastric pain 07/16/2023 Disorder of upper gastrointestinal tract 023 Congenital hernia of foramen of Bochdalek 2022 Chronic bronchitis 07/16/2023 Hypertension, essential 03/31/2023 Overview (03/31/2023): Worsening. Start valsartan/hydrochlorothiazide 80/12.5 mg 1 p.o. q.a.m.. 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 Encounters Date Type Department Care Team Description 09/21/2024 11:45 AM EKG TECHNICIAN Office Visit [facility] Medical Group Family Medicine [address] [facility] [address] [place] [phone] Josemanuel Kim MD Annual physical exam (Primary Dx); Fatigue, unspecified type; Hypertension, essential; Mixed hyperlipidemia; SOB (shortness of breath) on exertion; Cigarette nicotine dependence without complication from Last 3 Months Immunizations Immunization Administration Dates Next Due Influenza, Unspecified 09/21/2024(Deferr ed: Patient Refused),11/28/2023(Deferred: Patient Refused),07/16/2023(Deferred: Patient Refused),10/30/2022(Deferred: Patient Refused),07/05/2021(Deferred: Patient Refused),12/08/2019(Deferred: Patient Refused) Surgical History Surgery Date Site/Laterality Comments THYROID SURGERY SKIN CANCER EXCISION Multiple, chest, back, head TUBAL LIGATION Medical History Medical History Date Comments Hyperlipidemia ADHD (attention deficit hyperactivity disorder) GERD (gastroesophageal reflux disease) Anxiety Thyroid disease Cancer (HCC) Skin Pneumonia Hiatal hernia Skin cancer 6 years ago Family History * Patient is adopted Medical History Relation Name Comments Cancer Father unknown type Diabetes Father Heart disease Father Hypertension Father Cancer Father's Brother bone Kidney disease Mother Cancer Other both sides of f amily Relation Name Status Comments Father Father's Brother Mother Other Sister Alive Social History Tobacco Use Types Packs/Day Years Used Date Smoking Tobacco: Every Day Cigarettes 1.3 45 Started: 12/08/1979 Smokeless Tobacco: Never Tobacco Cessation:Ready to Q uit: Not Asked; Counseling Given: Not Answered Alcohol Use Standard Drinks/Week Comments Not Currently 0 (1 standard drink = 0.6 oz pur e alcohol) PHQ-2 Answer Date Recorded PHQ-2 Total Score (If total score is 3 or more points, staff should administer the PHQ-9) 6 09/21/2024 PHQ-9 Answer Date Recorded PHQ-9 Total Score 18 09/21/2024 Comments Unknown Sex and Gender Information Value Date Recorded Sex Assigned at Not on file Legal Sex Female 5:06 AM EKG TECHNICIAN Gender Identity Not on file Sexual Orientation Not on file Obstetrics History Last Filed Vital Signs Vital Sign Reading Time Taken Comments Blood Pressure 136/84 09/21/2024 11:36 AM EKG TECHNICIAN Pulse 86 09/21/2024 11:36 AM EKG TECHNICIAN Temperature 36.7 C (98 F) 12/18/2021 7:26 AM CDT Respiratory Rate 18 09/21/2024 11:36 AM EKG TECHNICIAN Oxygen Saturation 99% 09/21/2024 11:36 AM EKG TECHNICIAN Inhaled Oxygen Concentration - - Weight 64 kg (141 lb) 09/21/2024 11:36 AM EKG TECHNICIAN Height 160 cm (5' 3 ) 09/21/2024 11:36 AM EKG TECHNICIAN Body Mass Index 24.98 09/21/2024 11:36 AM EKG TECHNICIAN Plan of Treatment Health Maintenance Due Date Last Done Comments Hepatitis C Screening 1965 DTaP/Tdap/Td Vaccine (1 - Tdap) 1976 Hepatitis B Screening 1983 Pneumococcal vaccine <65 (1 of 2 - PCV) 1984 Lung Cancer Screening 2015 Zoster Vaccine (1 of 2) 2015 Breast Cancer Screening-Mammogram 08/31/2015 014 Cervical Cancer Screening 12/13/2015 12/12/2014 Colon Cancer Screening-Colonoscopy 09/29/2024 09/29/2014 Depression Screening 09/21/2025 09/21/2024, 09/21/2024, 07/16/2023, Additional history exists Regular Well Visit/Exam 18-64 09/21/2025, 07/05/2021, 05/08/2021, Additional history exists Colon Cancer Screening-CT Colonography Discontinued 09/29/2014 Colon Cancer Screening-DNA Stool Discontinued 09/29/19 15 Colon Cancer Screening-FIT Discontinued 09/29/2014 Colon Cancer Screening-Sigmoidoscopy Discontinued 09/29/2014 Influenza Vaccine Discontinued Procedures Procedure Name Priority Date/Time Associated Diagnosis Comments THINPREP PAP Routine 12/12/2014 12:00 PM CDT COLONOSCOPY Routine 09/29/2014 from Last 3 Months or Most Recently Relevant to Health Maintenance Results * ThinPrep Pap (12/12/2014 12:00 PM CDT) Pathologist [facility] Thin Prep Pap Smear SEE BELOW () 12/21/2014 11:18 AM CDT [facility] HISTORICAL RESULTS Comment: Onsite Health Coach ThinPrep Cytology Final Report ThinPrep Pap Specimen Source Cervix/Endocervix Specimen Adequacy Satisfactory for interpretation, endocervical cells (transformation zone) present. Interpretation Atypical squamous cells of undetermined significance. Endometrial cells present (see comment). 12/19/14 Junior Software Engineer: DARYA Allan (ASCP) Reviewed by: Nguyen LEE 12/21/14 Verified By: Winter Serna M.D. electronic signature [facility], Department of Pathology For questions regarding this case, call ext. [phone] CPT Code(s) 76975 / 97238 Comments -------- Endometrial cells after age 40, particularly out of phase or after menopause, may be associated with benign endometrium, hormonal alterations and less commonly, endometrial - uterine abnormalities(see J Lower Gen Tract Dis 2006;10(2):111-122). Clinical correlation is recommended. For women aged 21-24 years with ASC-US, cytology alone at 12-month intervals is preferred, but reflex HPV testing is acceptable. If reflex HPV testing is performed with ASC-US and the HPV result is positive, repeat cytology in 12 months is recommended. Immediate colposcopy or repeat HPV testing is not recommended. If reflex HPV testing is performed and is negative, return for routine screening with cytology alone in 3 years is recommended. 2012 Updated Guidelines for the Management of Abnormal Cervical Cancer Screening Tests and Cancer Precursors. J Low Genit Tract Dis. 2013 Dec;17(5 Suppl 1):S1-S27. Fellow ------ Ghulam Munroe D.O. Clinical History LMP: ABLATION : N : N IUD: N Hormone Therapy: N Postmenopausal: N Previous surgery date and type: N Hysterectomy: N Chemotherapy: N JUN Exposure: N Radiation: N Previous Abnormal Pap? Details: N Diagnostic or Screening Pap Test: Screening Performed by [facility], [address] [place] [id number] [email or web address], Heriberto Patel MD - Lab. Director 12/12/2014 12:0 0 PM CDT 12/13/2014 5:45 PM CDT Drew Grayson MD LAB PATHOLOGY ORDERABLES F inal Result [facility] HISTORICAL RESULTS * Colonoscopy (09/29/2014) Anatomical Region Laterality Modality Other Historical Provider ENDOSCOPY PROCEDURES Sammi l Result from Last 3 Months or Most Recently Relevant to Health Maintenance Insurance [facility] Care Teams Heel Caser Relationship Specialty Start Date End Date Josemanuel Kim MD [address] [place] [address] PCP - General Family Medicine 12/08/19
--- OUTSIDE RECORDS SUMMARY | 2024-12-19 21:49 | XMS_ITS | Referral Summary ---
Author Organization [facility] Virtual Care Address [address] [place] [phone] Phone Care Team Providers Care Detail Assembler Name Role Phone Josemanuel Kim MD Primary Care Provi hiwot Encounters Date Type Department Care Team Description 09/21/2024 11:45 AM ASSOCIATE WEB DEVELOPER Office Visit [facility] Medical Group Family Medicine [address] [facility] [address] [place] [phone] Josemanuel Kim MD Annual physical exam (Primary Dx); Fatigue, unspecified type; Hypertension, essential; Mixed hyperlipidemia; SOB (shortness of breath) on exertion; Cigarette nicotine dependence without complication from Last 3 Months Allergies No known active allergies Medications biotin [...] 023 Congenital hernia of foramen of [place]chdalek 10/18/ 2023 Chronic bronchitis 07/16/2023 Hypertension, essential 03/31/2023 Overview (03/31/2023): Worsening. Start valsartan/hydrochlorothiazide 80/12.5 mg 1 p.o. q.a.m.. 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 Immunizations Immunization Administration Dates Next Due Influenza, Unspecified 09/21/2024(Deferr ed: Patient Refused),11/28/2023(Deferred: Patient Refused),07/16/2023(Deferred: Patient Refused),10/30/2022(Deferred: Patient Refused),07/05/2021(Deferred: Patient Refused),12/08/2019(Deferred: Patient Refused) Social History Tobacco Use Types Packs/Day Years [...] on file Legal Sex Female 5:06 AM ASSOCIATE WEB DEVELOPER Gender Identity Not on file Sexual Orientation Not on file Last Filed Vital Signs Vital Sign Reading Time Taken Comments Blood Pressure 136/84 09/21/2024 11:36 AM ASSOCIATE WEB DEVELOPER Pulse 86 09/21/2024 11:36 AM ASSOCIATE WEB DEVELOPER Temperature 36.7 C (98 F) 12/18/2021 7:26 AM CDT Respiratory Rate 18 09/21/2024 11:36 AM ASSOCIATE WEB DEVELOPER Oxygen Saturation 99% 09/21/2024 11:36 AM ASSOCIATE WEB DEVELOPER Inhaled Oxygen Concentration - - Weight 64 kg (141 lb) 09/21/2024 11:36 AM ASSOCIATE WEB DEVELOPER Height 160 cm (5' 3 ) 09/21/2024 11:36 AM ASSOCIATE WEB DEVELOPER Body Mass Index 24.98 09/21/2024 11:36 AM ASSOCIATE WEB DEVELOPER Plan of Treatment Not on file Procedures Procedure Name Priority Date/Time Associated Diagnosis Comments THINPREP PAP Routine 12/12/2014 12:00 PM CDT COLONOSCOPY Routine 09/29/2014 from Last 3 Months or Most Recently Relevant to Health Maintenance Results * ThinPrep Pap (12/12/2014 12:00 PM CDT) Thin Prep Pap Smear SEE BELOW () 12/21/2014 11:18 AM CDT [facility] HISTORICAL RESULTS Comment: Extrusion Press Adjuster ThinPrep Cytology Final Report ThinPrep Pap Specimen Source Cervix/Endocervix Specimen Adequacy Satisfactory for interpretation, endocervical cells (transformation zone) present. Interpretation Atypical squamous cells of undetermined significance. Endometrial cells present (see comment). 12/19/14 Human Service Technician: DARYA Allan (ASCP) Reviewed by: Nguyen LEE 12/21/14 Verified By: Winter Serna M.D. electronic signature [facility], Department of Pathology For questions regarding this case, call ext. [phone] CPT Code(s) 61297 / 37037 Comments -------- Endometrial cells after age 40, [...] Precursors. J Low Genit Tract Dis. 2013 Apr;17(5 Suppl 1):S1-S27. Fellow ------ Ghulam Munroe D.O. Clinical History LMP: ABLATION : N : N IUD: N Hormone Therapy: N Postmenopausal: N Previous surgery date and type: N Hysterectomy: N Chemotherapy: N JUN Exposure: N Radiation: N Previous Abnormal Pap? Details: N Diagnostic or Screening Pap Test: Screening Performed by [facility], [address] [place] [id number] [email or web address], Heriberto Patel MD - Lab. Director 12/12/2014 12:0 0 PM CDT 12/13/2014 5:45 PM CDT Drew Grayson MD LAB PATHOLOGY ORDERABLES F inal Result Performing Organization Address City/State/[facility] Co de Phone Number [facility] HISTORICAL RESULTS * Colonoscopy (09/29/2014) Anatomical Region Laterality Modality Other Historical Provider ENDOSCOPY PROCEDURES Sammi l Result from Last 3 Months or Most Recently Relevant to Health Maintenance Insurance [facility] Care Teams Detail Assembler Relationship Specialty Start Date End Date Josemanuel Kim MD [address] [facility] [address] [place] [address] PCP - General Family Medicine 12/08/19
--- NOTE | 2024-12-20 01:14 | PC.NURSE ---
Called to be taken back to room, no answer, patient not seen in waiting room.
--- NOTE | 2024-12-20 01:47 | PC.NURSE ---
Call x2, no answer, patient not seen in [facility].
--- OUTSIDE RECORDS SUMMARY | 2024-12-20 02:05 | XMS_ITS | Clinical Summary ---
Author Organization [facility] [employer] Address [address] [facility] [place] [address] Care Team Providers Care Senior Insight Manager International Name Role Phone Josemanuel Kim MD Primary Care Formerly [facility] Source Comments [facility] [employer] [facility] [employer],non-owned Affiliates and Associated Physician Practices is amultiple site organization consisting of ambulatory clinics and hospital sitesin [place], [place], [place] and [place]. This disclosure is being madepursuant to the Care Everywhere program and may not contain all information available regarding this patient. Last updated 18.[facility] [employer] [facility] [employer] Allergies No known active allergies Medications * [...] age to complete this topic Care Teams Senior Insight Manager International Relationship Specialty Start Date End Date Josemanuel Kim MD [address] [address] PCP - General Family Medicine 11/19/23
--- OUTSIDE RECORDS SUMMARY | 2024-12-20 02:05 | XMS_ITS | Encounter Summary ---
Author Organization [facility] Address [address] [facility] [place] [address] Care Team Providers Care Chemical Processing Equipment Repairer Name Role Phone Josemanuel Kim MD Primary Care [facility] Encounter Details Date Type Department Care Team (Late st Contact Info) Description 09/01/2020 Lab Requisition [facility] [address] [place] [phone] Earle Healy MD [address] [facility] [place] [address] Social History Tobacco Use Types Packs/Day Years [...] Comments DERMATOPATHOLOGY Routine 08/31/2020 12:0 0 AM FINANCIAL WELLNESS COACH documented in this encounter Results * DERMATOPATHOLOGY (08/31/2020 12:00 AM FINANCIAL WELLNESS COACH) Case Report Dermatopathology Report Case: [id number] Authorizing Provider: Earle Healy MD Collected: 08/31/2020 12:00 AM Ordering Location: [facility] Received: 09/01/2020 06:38 AM Pathologist: Pretty Carballo MD Specimen: Skin, right side 0 1:29 PM FINANCIAL WELLNESS COACH DERMATOPATHOLOGY LABORATORY Final Diagnosis Specimen A. SKIN, right side: DERMAL SCAR RESIDUAL MELANOCYTIC PROLIFERATION NOT IDENTIFIED (L90.5) 0 1:29 PM [facility]ER[facility] Clinical History Nevus vs MM. Path # [id number]. Check margins. 0 1:29 PM [facility] Gross Description Specimen A: Received is one formalin filled container labeled with the patient's name and designated right side. The specimen consists of a non-oriented ellipse of skin measuring [id number]. The epidermal surface consists of a centrally located 5x5mm previous biopsy site. The margin is inked green. The specimen is bisected and submitted in 1 cassette. Jar 0. 0 1:29 PM [facility]ERMAT[facility] Microscopic Description Specimen A. SKIN, right side: There are fibroblasts and collagen bundles oriented parallel to the skin surface. There are elongated blood vessels, some of which are oriented perpendicular to the skin surface. No residual melanocytic proliferation is identified. 0 1:29 PM [facility]ERMATOPATH[facility]OR[facility] Disclaimer An external and internal positive and negative controls are appropriate for the histochemical, immunohistochemical and immunofluorescence stain(s) in this case (if any), except where stated explicitly. The performance characteristics of the stain(s) cited in this report were developed and its performance characteristic determined by the Dermatopathology Laboratory at [facility], directed by Dr. Lorrie Dalton. These tests need not be, and therefore are not, approved by the [place] Food and Drug Administration. The tests are used for clinical purposes. Billing Codes Specimen Charges Stain Charges 85317 1 0 1:29 PM [facility] Embedded Images 0 1:29 PM [facility] Pathology/Cytolog y TISSUE SPECIMEN FROM SKIN / Unknown 08/31/2020 09/01/2020 6:38 AM FINANCIAL WELLNESS COACH Earle Healy MD LAB - PATHOLOGY/CYTO LOGY ORDERABLES DERMATOPATHOLOGY LABORATORY [facility] - Department of Dermatology [address], [address] [phone] documented in this encounter Visit Diagnoses Not on filedocumented in this encounter Care Teams Chemical Processing Equipment Repairer Relationship Specialty Start Date End Date Josemanuel Kim MD [address] [place] [address] PCP - General Family Medicine 11/19/23 documented as of this encounter
--- OUTSIDE RECORDS SUMMARY | 2024-12-20 02:05 | XMS_ITS | Clinical Summary ---
Author Organization [facility] Virtual Care Address [address] [place] [phone] Phone Care Team Providers Care Textiles Printer Name Role Phone Josemanuel Kim MD Primary [...] Department Care Team Description 09/21/2024 11:45 AM SCALE ATTENDANT Office Visit [facility] Medical Group Family Medicine [address] [facility] [address] [place] [phone] Josemanuel Kim MD Annual physical exam [...] on file Legal Sex Female 5:06 AM SCALE ATTENDANT Gender Identity Not on file Sexual Orientation Not on file Obstetrics History Last Filed Vital Signs Vital Sign Reading Time Taken Comments Blood Pressure 136/84 09/21/2024 11:36 AM SCALE ATTENDANT Pulse 86 09/21/2024 11:36 AM SCALE ATTENDANT Temperature 36.7 C (98 F) 12/18/2021 7:26 AM CDT Respiratory Rate 18 09/21/2024 11:36 AM SCALE ATTENDANT Oxygen Saturation 99% 09/21/2024 11:36 AM SCALE ATTENDANT Inhaled Oxygen Concentration - - Weight 64 kg (141 lb) 09/21/2024 11:36 AM SCALE ATTENDANT Height 160 cm (5' 3 ) 09/21/2024 11:36 AM SCALE ATTENDANT Body Mass Index 24.98 09/21/2024 11:36 AM SCALE ATTENDANT Plan of Treatment Health Maintenance Due Date [...] ThinPrep Pap (12/12/2014 12:00 PM CDT) Pathologist [facility] Thin Prep Pap Smear SEE BELOW () Comment: Wallpaper Consultant ThinPrep Cytology Final Report ThinPrep Pap Specimen Source Cervix/Endocervix Specimen Adequacy Satisfactory for interpretation, endocervical cells (transformation zone) present. Interpretation Atypical squamous cells of undetermined significance. Endometrial cells present (see comment). 12/19/14 Ad Operations Specialist: DARYA Allan (ASCP) Reviewed by: Nguyen LEE 12/21/14 Verified By: Winter Serna M.D. electronic signature [facility], Department of Pathology For questions regarding this case, call ext. [phone] CPT Code(s) 85039 / 19073 Comments -------- Endometrial cells after age 40, [...] or Screening Pap Test: Screening Performed by [facility], [address] [place] [phone] [email or web address], Heriberto Patel MD - Lab. Director 12/12/2014 12:0 0 PM CDT 12/13/2014 5:45 PM CDT Drew Grayson MD LAB PATHOLOGY ORDERABLES F inal Result [facility] HISTORICAL RESULTS * Colonoscopy (09/29/2014) Anatomical Region Laterality Modality Other Historical Provider ENDOSCOPY PROCEDURES Sammi l Result from Last 3 Months or Most Recently Relevant to Health Maintenance Insurance [facility] Care Teams Textiles Printer Relationship Specialty Start Date End Date Josemanuel Kim MD [address] [place] [address] PCP - General Family Medicine 12/08/19
--- OUTSIDE RECORDS SUMMARY | 2024-12-20 02:05 | XMS_ITS | Encounter Summary ---
Author Organization [facility] Health Address [address] [place] [address] Care Team Providers Care Editor Greeting Card Name Role Phone Josemanuel Kim MD Primary Care [facility] Encounter Details Date Type Department Care Team (Late st Contact Info) Description 08/01/2020 Lab Requisition [facility]erm[facility] [address] [place] [phone] Earle Healy MD [address] [place] [address] Social History Tobacco Use Types Packs/Day Years [...] AM CDT) Case Report Dermatopathology Report Case: [id number] Authorizing Provider: Earle Healy MD Collected: 07/28/2020 12:00 AM Ordering Location: [facility] Received: 08/01/2020 05:57 AM Pathologist: Christine Harris MD Specimens: A) - Skin, right anterior hairline B) - Skin, right jawline C) - Skin, right side 0 4:14 PM [facility] DERMATOPATHOLOGY [facility]ORAT[facility] Final Diagnosis Specimen A. SKIN, right anterior hairline: SQUAMOUS CELL CARCINOMA, WELL DIFFERENTIATED (C44.329) (see microscopic description) Specimen B. SKIN, right jawline: HYPERPLASTIC (HYPERTROPHIC) ACTINIC KERATOSIS (L57.0) Specimen C. SKIN, right side: COMPOUND MELANOCYTIC PROLIFERATION, INFLAMED; PRESENT AT MARGIN (D48.5) (see microscopic description and comment) 0 4:14 PM [facility] DERMATOPATHOLOGY [facility] Clinical History A: SK vs SCC. Path # [id number]. B: SK vs SCC. Path # [id number]. C: Nevus vs MM. Path # [id number]. 0 4:14 PM [facility] Gross Description Specimen A: Received is one formalin filled container labeled with the patient's name and designated right anterior hairline. The specimen consists of a shave biopsy (3 pieces) measuring 51g98o3fz, bisected, 5p9l2te, & 3h0s1nb. Jar 0+. Specimen B: Received is one formalin filled container labeled with the patient's name and designated right jawline. The specimen consists of a shave biopsy measuring 3x2d5nc. Jar 0. Specimen C: Received is one formalin filled container labeled with the patient's name and designated right side. The specimen consists of a shave biopsy measuring 6p0g7wx. Jar 0. 0 4:14 PM [facility] Microscopic Description Specimen A. [...] Pretty Carballo, who agrees. 0 4:14 PM [facility] GR[facility] DERMATOPATHOLOGY LABORATORY Disclaimer An external and internal positive and negative controls are appropriate for the histochemical, immunohistochemical and immunofluorescence stain(s) in this case (if any), except where stated explicitly. The performance characteristics of the stain(s) cited in this report were developed and its performance characteristic determined by the Dermatopathology Laboratory at [facility], directed by Dr. Lorrie Dalton. These tests need not be, and therefore are not, approved by the [place] Food and Drug Administration. The tests are used for clinical purposes. Billing Codes Specimen Charges Stain Charges 94399 98340 26766 1 1 1 00897 1 0 4:14 PM [facility] GRIND[facility]PER[facility] DERMATOPATHOLOGY LABORATORY Embedded Images 0 4:14 PM [facility] DERMATOPATHOLOGY LABORATORY Pathology/Cytology TISSUE SPECIMEN FROM SKIN / Unknown 07/28/2020 08/01/2020 5:57 AM MAGNETIC GRINDER OPERATOR Miscellaneous samples (specimen) TISSUE SPECIMEN FROM SKIN / Unknown 07/28/2020 08/01/2020 5:57 AM MAGNETIC GRINDER OPERATOR Miscellaneous samples (specimen) TISSUE SPECIMEN FROM SKIN / Unknown 07/28/2020 08/01/2020 5:57 AM MAGNETIC GRINDER OPERATOR Earle Healy MD LAB - PATHOLOGY/CYTO LOGY ORDERABLES DERMATOPATHOLOGY LABORATORY [facility] - Department of Dermatology [facility] [address] [place] [address], [address] [phone] documented in this encounter Visit Diagnoses Not on filedocumented in this encounter Care Teams Editor Greeting Card Relationship Specialty Start Date End Date Josemanuel Kim MD [address] [place] [address] PCP - General Family Medicine 11/19/23 documented as of this encounter
--- OUTSIDE RECORDS SUMMARY | 2024-12-20 02:06 | XMS_ITS | Referral Summary ---
Author Organization [facility] Virtual Care Address [address] [place] [phone] Phone Care Team Providers Care Coke Handling Supervisor Name Role Phone Josemanuel Kim MD Primary Care Provi hiwot Encounters Date Type Department Care Team Description 09/21/2024 11:45 AM EXTENSION WORK INSTRUCTOR Office Visit [facility] Family Medicine [address] [place] [phone] Josemanuel Kim MD Annual physical exam [...] of undet signfc cyto smr crvx (A AR-US) 03/25/2016 Resolved Problems Problem Noted Date Diagnosed [...] on file Legal Sex Female 5:06 AM EXTENSION WORK INSTRUCTOR Gender Identity Not on file Sexual Orientation Not on file Last Filed Vital Signs Vital Sign Reading Time Taken Comments Blood Pressure 136/84 09/21/2024 11:36 AM EXTENSION WORK INSTRUCTOR Pulse 86 09/21/2024 11:36 AM EXTENSION WORK INSTRUCTOR Temperature 36.7 C (98 F) 12/18/2021 7:26 AM CDT Respiratory Rate 18 09/21/2024 11:36 AM EXTENSION WORK INSTRUCTOR Oxygen Saturation 99% 09/21/2024 11:36 AM EXTENSION WORK INSTRUCTOR Inhaled Oxygen Concentration - - Weight 64 kg (141 lb) 09/21/2024 11:36 AM EXTENSION WORK INSTRUCTOR Height 160 cm (5' 3 ) 09/21/2024 11:36 AM EXTENSION WORK INSTRUCTOR Body Mass Index 24.98 09/21/2024 11:36 AM EXTENSION WORK INSTRUCTOR Plan of Treatment Not on file Procedures Procedure Name Priority Date/Time Associated Diagnosis Comments THINPREP PAP Routine 12/12/2014 12:00 PM CDT COLONOSCOPY Routine 09/29/2014 from Last 3 Months or Most Recently Relevant to Health Maintenance Results * ThinPrep Pap (12/12/2014 12:00 PM CDT) Thin Prep Pap Smear SEE BELOW () 12/21/2014 11:18 AM CDT [facility] HISTORICAL RESULTS Comment: Agricultural Loan Officer ThinPrep Cytology Final Report ThinPrep Pap Specimen Source Cervix/Endocervix Specimen Adequacy Satisfactory for interpretation, endocervical cells (transformation zone) present. Interpretation Atypical squamous cells of undetermined significance. Endometrial cells present (see comment). 12/19/14 Glass Maker: DARYA Allan (ASCP) Reviewed by: Nguyen LEE 12/21/14 Verified By: Winter Serna M.D. electronic signature [facility], Department of Pathology For questions regarding this case, call ext. [phone] CPT Code(s) 24720 / 60288 Comments -------- Endometrial cells after age 40, [...] or Screening Pap Test: Screening Performed by [email or web address], [address] [place] [id number] [email or web address], Heriberto Patel MD - Lab. Director 12/12/2014 12:0 0 PM CDT 12/13/2014 5:45 PM CDT Drew Grayson MD LAB PATHOLOGY ORDERABLES F inal Result Performing Organization Address City/State/[facility] Co de Phone Number [facility] HISTORICAL RESULTS * Colonoscopy (09/29/2014) Anatomical Region Laterality Modality Other Historical Provider ENDOSCOPY PROCEDURES Sammi l Result from Last 3 Months or Most Recently Relevant to Health Maintenance Insurance [facility] Care Teams Coke Handling Supervisor Relationship Specialty Start Date End Date Josemanuel Kim MD [address] [facility] [address] [place] [address] PCP - General Family Medicine 12/08/19
== END 2024-12-20 01:47 | disposition left against medical advice (07) ==
LOC: ANHED 12-20 02:04
DX: M54.9 Dorsalgia, unspecified (principal)
CPT/HCPCS: 99199

== ENCOUNTER 2025-03-24 15:46 | Emergency (ER) | payer OTHER, SELFPAY ==
--- NOTE | ~2025-03-24 | XR_ITS ---
[id number] Ordering provider: Joselyn Small APRN History: . pain with movement . Comparison: None. FINDINGS: VERTEBRAL BODIES: Normal height and alignment. No visible fracture or subluxation. The dens is intact . DISK SPACES: Well maintained. Multilevel facet joint disease. PARASPINOUS SOFT TISSUES: No prevertebral soft tissue swelling. IMPRESSION: No acute osseous abnormality cervical spine. Reviewed, dictated and finalized at location A.
--- NOTE | 2025-03-24 15:51 | ED_ITS ---
HPI - Neck Pain/Injury General Chief Complaint: Neck Pain/Injury Stated Complaint: neck pain/x-ray Time Seen by Provider: 03/24/25 15:50 Source: patient Mode of arrival: ambulatory Limitations: no limitations History of Present Illness HPI Narrative: Patient is a 59-year-old female who presents with neck pain that started last week. Patient states she woke up and noticed the pain. Denies any trauma to neck. For warts pain shoots up the back of her head. Has been taking Tylenol ibuprofen roughly 3 times today. Denies any numbness, tingling or weakness to extremities. States her PCP told her to come get an x-ray. Related Data Home Medications ?Medication ?Instructions ?Recorded ?Confirmed ?Last Taken ?Type dextroamphetamine-amphetamine 5 mg 5 mg PO DAILY 08/19/22 11/10/23 Unknown History tablet (Adderall) Allergies Allergy/AdvReac Type Severity Reaction Status Date / Time No Known Allergies Allergy Verified 03/24/25 15:54 Review of Systems Review of Systems: All systems reviewed & are unremarkable except as noted in HPI and below Constitutional: Constitutional: Denies body ache(s), Denies chills, Denies fatigue, Denies fever(s), Denies headache(s), Denies malaise and Denies weakness Eyes: Eyes: Denies blurry vision, Denies irritation and Denies loss of vision ENT: Denies otalgia, Denies headache(s), Denies nasal discharge, Denies sinus pain and Denies sore throat Cardiovascular: Cardiovascular: Denies chest pain, Denies irregular heart rhythm and Denies dyspnea Respiratory: Respiratory: Denies dyspnea Gastrointestinal: Gastrointestinal: Denies abdominal pain, Denies melena, Denies hematochezia, Denies diarrhea, Denies nausea and Denies vomiting Musculoskeletal: Musculoskeletal: Denies back pain, Denies myalgias, Denies arthralgias and Reports neck pain Integumentary/Breasts: Skin/Breast: Denies pruritus and Denies rash Neurologic: Denies headache(s), Denies loss of vision and Denies weakness Psychiatric: Psychiatric: Reports no additional psychiatric complaints Endocrine: Endocrine: Denies fatigue PMFSH Past Medical History Medical History ADHD Skin cancer HLD (hyperlipidemia) HTN (hypertension) Family History Family History Other Diabetes mellitus Heart disease Social History Social History Smoking packs per day: 0.5 Smoking cigarettes per day: 10.0 Years smoked: 40 Smoking pack-years: 20.00 Smoking status: Current every day smoker Tobacco type: cigarettes Alcohol use details: Occasional Comments At time of signature, agree with nursing past medical, surgical, social and family history. There is no relevant family history pertinent to the presenting complaint. Exam Const: General: cooperative, healthy appearing, comfortable, no acute distress and well nourished Nutritional Appearance: well nourished Orientation/consciousness: patient oriented x3 Limitations: no limitations HENMT: Head: normal to inspection, normocephalic and atraumatic Ears: hearing grossly normal bilaterally and external ears normal Face/Nose/Sinus: Normal external nose present, normal facial exam and face symmetric Face and sinus: normal facial exam and face symmetric Mouth: Yes lip normal Eyes: General: appearance normal, both eyes and all related structures Alignment and Position: alignment normal and position normal Periorbital: periorbital findings normal Eyelids: eyelids normal Pupils: Equal, round and reactive pupils present EOM: EOMs intact bilaterally Neck: Neck: normal visual inspection, full ROM and supple Chest: Chest palpation & inspection: normal inspection of the chest Resp: Effort & Inspection: normal respiratory effort and able to speak in complete sentences Auscultation: clear to auscultation bilaterally Cardio: Rate: regular rate Rhythm: regular rhythm Heart sounds: S1 normal heart sound present and S2 normal heart sound present GI: Inspection: normal to inspection Back/Spine/Pelvis: Cervical Spine: normal cervical lordosis, cervical ROM normal, cervical muscular tenderness, pain with cervical ROM and No Cervical spine tenderness Skin: General skin exam: normal color and no rashes or lesions noted Neuro: General: patient oriented x3 and moves all extremities Cranial nerves: Yes Equal, round and reactive pupils present Cognition (Neuro): normal cognition Speech: normal speech Gait exam (Neuro): Normal gait present Motor exam (neuro): 5/5 motor strength present throughout, Normal motor muscle tone present throughout and Motor abnormalities not present Sensory Exam: normal sensation Extrem: General: normal to inspection, full ROM and no edema Psych: Appearance: grossly normal and well kempt Mental Status: mental status grossly normal Speech and movement: Normal speech and movement present Affect: normal affect Attitude: cooperative Thought process: Normal thought process present Course Course Emergency Course: Patient is aware of diagnosis, understands and agrees to treatment plan. Anticipatory guidance given. Patient agrees to follow-up as directed and is aware of reasons to seek care at the emergency department. Portions of this record may have been created with voice recognition software Level of Care: Express Care Visit Vital Signs Vital signs: Reviewed MDM - Neck Pain/Injury MDM Narrative Medical decision making narrative: Pt well hydrated appearing, in no respiratory distress, hemodynamically stable. Recommend supportive care. The patient is stable at time of discharge the clinical impression was discussed and the patient was given the opportunity to ask questions, which were addressed as completely as possible given the information available at present. Anticipatory guidance and return to care precautions were discussed and the importance of primary care follow-up was stressed and encouraged. The patient voiced understanding of the plan, indications to return, and the need for follow-up. Exam findings show no acute concerns or changes Patient is appropriate for outpatient treatment and follow-up. Differential Diagnosis Differential diagnosis: Likely disc disorder of cervical region, cervical radiculopathy, cervical spondylosis and strain of neck muscle Medical Records Attestation: I reviewed the patient's medical records. Imaging Data Radiologist's impression: [id number] Ordering provider: Joselyn Small APRN History: . pain with movement . Comparison: None. FINDINGS: VERTEBRAL BODIES: Normal height and alignment. No visible fracture or subluxation. The dens is intact. DISK SPACES: Well maintained. Multilevel facet joint disease. PARASPINOUS SOFT TISSUES: No prevertebral soft tissue swelling. IMPRESSION: No acute osseous abnormality cervical spine. Discharge Plan Discharge Clinical Impression: Strain of neck muscle Qualifiers: Encounter type: initial encounter Qualified Code(s): S16.1XXA - Strain of muscle, fascia and tendon at neck level, initial encounter Patient Disposition: Home Condition: Stable Instructions: Acute Neck Pain (ED) Additional Instructions: Take steroids in the morning with food. take muscle relaxers every 8 hours as needed for muscle spasm. do not drive or make any important decisions while on this medication for it can make you drowsy Avoid Smoking:Both the smoke and the nicotine cause your spine to age faster than normal. Proper Posture:Good posture is important for avoiding future problems. A therapist can teach you how to safely stand, sit, and lift. Use warm moist heat or ice to help with pain. Follow up with Primary provider in 2-3 days, This may become a chronic condition and they will be the one to help manage your pain and order additional testing. Follow-up with your doctor for further care and evaluation or seek ER if you develop problems with bladder/bowel function, weakness or loss of feeling in one or both of your legs. Patient Language: Armenian Prescriptions: New prednisone 20 mg tablet 40 mg PO DAILY 5 Days Qty: 10 0RF baclofen 10 mg tablet 10 mg PO BID Qty: 10 0RF No Action dextroamphetamine-amphetamine [Adderall] 5 mg Tablet 5 mg PO DAILY Follow-up/Referrals: Judy,Josemanuel Marcus M.D. [Primary Care Provider] - 3 Days Time of Disposition: 16:26
[2025-03-24 15:55] VITALS: BP 133/77; PULSE 100; RESP 18; TEMP 36.8; O2SAT 97
== END 2025-03-24 16:28 | disposition home or self-care (01) ==
PROVIDERS: Emergency Provider Nurse Practitioner Family; PCP Family Medicine
DX: S16.1XXA Strain of muscle, fascia and tendon at neck level, initial encounter (principal); X58.XXXA Exposure to other specified factors, initial encounter; I10 Essential (primary) hypertension; E78.5 Hyperlipidemia, unspecified; F90.9 Attention-deficit hyperactivity disorder, unspecified type; F17.210 Nicotine dependence, cigarettes, uncomplicated; Z85.828 Personal history of other malignant neoplasm of skin
CPT/HCPCS: 72040; 99213; G0463